=== PATIENT | male | born 1955 | race Caucasian/White ===

== ENCOUNTER 2018-12-03 12:23 | Emergency (ER) | payer OTHER ==
[~2018-12-03] VITALS: Ht 188 cm; Wt 124.7 kg
[2018-12-03 13:25] VITALS: BP 180/86
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
== END 2018-12-03 14:26 | disposition home or self-care (01) ==
LOC: ER 12:23
DX: S32.010A Wedge compression fracture of first lumbar vertebra, initial encounter for closed fracture (principal); M47.894 Other spondylosis, thoracic region; M54.2 Cervicalgia; I10 Essential (primary) hypertension; Z90.89 Acquired absence of other organs; V43.52XA Car driver injured in collision with other type car in traffic accident, initial encounter; Y93.89 Activity, other specified; Y92.410 Unspecified street and highway as the place of occurrence of the external cause; Y99.8 Other external cause status
CPT/HCPCS: 72040; 72072; 72100; 99283